=== PATIENT | female | born 1985 | race Caucasian/White ===

== ENCOUNTER 2020-07-19 15:51 | Emergency (ER) | payer SELFPAY ==
--- NOTE | 2020-07-19 16:19 | PC.NURSE ---
Pt here to be evaluated for a pencil to her left eye. Pt states she contacted per eye doctor and that they would get her in. Pt left without triage.
== END 2020-07-19 16:00 | disposition left against medical advice (07) ==
LOC: ANHED 18:42
DX: Z53.21 Procedure and treatment not carried out due to patient leaving prior to being seen by health care provider (principal)
CPT/HCPCS: 99199

== ENCOUNTER 2020-11-29 09:18 | Emergency (ER) | payer OTHER, SELFPAY ==
--- NOTE | ~2020-11-29 | CT_ITS ---
EXAMINATION: CT abdomen pelvis w con DATE: 11/29/2020 10:23 INDICATION: Left-sided abdominal pain. History of diverticulitis TECHNIQUE: Computed tomography (CT) of the abdomen and pelvis was performed with 100 cc Omnipaque 350 intravenous contrast. Automated exposure control and iterative reconstruction technique were employe d. Exam dose: 789.30 mGy-cm total exam DLP. COMPARISON: 08/23/2018 CT abdomen pelvis FINDINGS: The lung bases are clear. Normal heart size. No pericardial or pleural effusion. The liver, gallbladder, bile ducts, spleen, pancreas, pancreatic duct, and adrenal glands and kidneys are unremarkable with the exception of an 8 mm fat-containing lesion of the posterior mid left kidne y consistent with benign cortical lipoma or angiomyolipoma. In addition, there is a punctate nonobstr ucting lower pole left renal calculus. Peripherally enhancing involuting 2 cm right ovarian cyst. IUD within the uterus. The urinary bladder is unremarkable. There is diverticulosis of the left and right colon. There is thickening of the wall of the mid trans verse colon with pericolic fat stranding in this area consistent with transverse colon diverticulitis . No abscess is identified. Normal appendix. No bowel obstruction, pneumatosis or intraperitoneal free air. Small fat-containing umbilical hernia. Included skeletal structures are unremarkable. IMPRESSION: Diverticulitis of the mid transverse colon; no abscess is identified Normal appendix. IUD within uterus 2 cm involuting right ovarian cyst Pinpoint nonobstructing lower pole left renal calculus Reviewed, dictated and finalized at [facility] Reviewed, dictated and finalized at [facility] IMPRESSION: Diverticulitis of the mid transverse colon; no abscess is identifi ed Normal appendix. IUD within uterus 2 cm involuting right ovarian cyst Pinpoint nonobstructing lower pole left renal calculus
[2020-11-29 09:44] VITALS: BP 139/96; PULSE 93; RESP 15; TEMP 36.9; O2SAT 100
[2020-11-29 09:52] LABS: Basophils Absolute Auto 0.1 K/mm3 (0.0-0.1); Basophils Percent Auto 0.6 % (0.2-1.2); Eosinophils Absolute Auto 0.1 K/mm3 (0-0.3); Eosinophils Percent Auto 0.6 % (0-4.4); Hematocrit 38.9 % (37.0-47.0); Hemoglobin 12.6 g/dL (12.0-15.0); Immature Granulocyte Absolute 0.02 K/mm3 (0.00-0.031); Immature Granulocyte Percent A 0.2 % (0-0.5); Lymphocytes Absolute Auto 1.37 K/mm3 (0.9-3.2); Lymphocytes Percent Auto 15.5 % (18.3-44.2); Mean Corpuscular HGB Conc 32.4 g/dl (32-36); Mean Corpuscular Hemoglobin 29.4 pg (26-34); Mean Corpuscular Volume 90.9 fl (80-100); Mean Platelet Volume 8.7 fl (7.4-10.4); Monocytes Absolute Auto 0.8 K/mm3 (0.1-0.6); Monocytes Percent Auto 8.5 % (2.6-8.5); Neutrophils Absolute Auto 6.6 K/mm3 (1.3-6.7); Neutrophils Percent Auto 74.6 % (45.5-73.1); Platelet Count Result 330 k/mm3 (150-375); Red Blood Count 4.28 M/mm3 (4.2-5.4); Red Cell Distribution Width 12.3 % (11.5-14.5); White Blood Count 8.9 K/mm3 (4.5-10.0)
[2020-11-29 09:55] LABS: Add Urine Microscopic? NO; Appearance Urine Clear (Clear); Bilirubin Urine Negative (Negative); Blood Urine Negative (Negative); Color Urine Straw (Yellow); Glucose Urine UA Negative (Negative); Ketones Urine Negative (Negative); Leukocyte Esterase Ur Negative LEU/UL (Negative); Nitrate Urine Negative (Negative); Protein Urine Negative (Negative); Urobilinogen Urine Negative mg/dL (<2.0)
[2020-11-29 09:57] LABS: Specific Grav Ur 1.004 (1.001-1.035)
[2020-11-29 10:02] LABS: Alanine Aminotransferase 14 U/L (4-35); Albumin Level 4.7 g/dL (3.5-5.1); Alkaline Phosphatase 75 U/L (38-126); Anion Gap 13 mmol/L (8-16); Aspartate Amino Transferase 22 U/L (14-36); Bilirubin,Total 0.9 mg/dL (0.2-1.3); Blood Urea Nitrogen 7 mg/dL (7-17); Calcium 9.9 mg/dL (8.4-10.2); Carbon Dioxide 22 mmol/L (22-30); Chloride 105 mmol/L (98-107); Estimated CRCL calculation 107 ml/min; Estimated Glomerular Filt Rate > 60; Glucose 92 mg/dL (65-105); Lipase 30 U/L (23-300); Potassium 3.8 mmol/L (3.4-5.0); Sodium 140 mmol/L (137-145)
--- NOTE | 2020-11-29 10:02 | ED.ABDPAIN ---
HPI - Abdominal Pain General Chief Complaint: Abdominal Pain Stated Complaint: poss diverticulitis Time Seen by Provider: 11/29/20 09:23 Source: patient Mode of arrival: ambulatory Limitations: no limitations History of Present Illness HPI narrative: Patient is a 35-year-old female who presents complaining of left-sided abdominal pain x1 day. She reports a temperature of 100.2 last p.m. Patient reports a history of diverticulitis multiple times in the past, last episode approximately 18 months ago. Patient reports she sees Dr. Genao, gastroenterology at [facility]. She denies nausea, vomiting or diarrhea. She denies urinary complaints at this time. Patient denies taking [id number] medications for pain prior to arrival. Related Data Home Medications Medication Instructions Recorded Confirmed levothyroxine [Synthroid] 11/29/20 Allergies Allergy/AdvReac Type Severity Reaction Status Date / Time No Known Allergies Allergy Unverified 04/13/18 21:04 Review of Systems Review of Systems: Narrative: CONSTITUTIONAL: Denies fever, chills, or sweats. EYES: Denies visual changes, redness, or discharge. ENT: Denies rhinorrhea, congestion, sore throat, or otalgia. CARDIOVASCULAR: Denies chest pain, palpitations, or edema. RESPIRATORY: Denies cough or dyspnea. GASTROINTESTINAL: Reports left-sided abdominal pain, denies nausea, vomiting, or diarrhea. GENITOURINARY: Denies dysuria or hematuria. SKIN: Denies rash or itching. MUSCULOSKELETAL: Denies back pain, joint pain, or myalgia. NEUROLOGIC: Denies headache, numbness, dizziness, or weakness. PSYCHIATRIC: Denies anxiety or depression. [facility]LY [facility] Past Medical History Medical History (Updated 11/29/20 @ 10:44 by VERN Powell) Diverticulitis Hypothyroidism Surgical History Surgical History (Updated 11/29/20 @ 10:04 by VERN Powell) No significant past surgical history Social History Social History (Updated 11/29/20 @ 10:04 by VERN Powell) Smoking status: Never smoker Alcohol intake: never Substance use: never Gender identity (if verbalized by the patient): Female Comments At the time of signature, I have reviewed and agree with nursing past medical, surgical, social, and family history unless otherwise noted. Please see nursing chart for further information. There is no relevant family history pertinent to the presenting complaint. Exam Narrative: Exam Narrative: GENERAL: Well-appearing, well-nourished, and in no acute distress. HEAD: Normocephalic, atraumatic. EYES: EOMI. No redness or drainage. Conjunctiva are normal. ENT: Mucous membranes pink and moist. CHEST: No respiratory distress. Clear to auscultation. HEART: Regular rate and rhythm. No murmur appreciated. Normal peripheral pulses. GI: Soft, left-sided tenderness with palpation, no rebound or guarding. No distention. Bowel sounds normal in all quadrants. MUSCULOSKELETAL: No bony tenderness. EXTREMITIES: Normal range of motion. No edema. SKIN: Warm, dry, no rash. NEURO: No focal deficits. Alert and oriented x3. Gait steady. PSYCH: Normal affect. No signs of depression or anxiety. Course Vital Signs Vital signs: Vital Signs Temperature 36.9 C 11/29/20 09:44 Pulse Rate 93 11/29/20 09:44 Respiratory Rate 15 11/29/20 09:44 Blood Pressure 139/96 H 11/29/20 09:44 Pulse Oximetry 100 11/29/20 09:44 Temperature 36.9 C 11/29/20 09:44 Pulse Rate 70 11/29/20 10:13 Respiratory Rate 16 11/29/20 10:13 Blood Pressure 117/87 11/29/20 10:13 Pulse Oximetry 100 11/29/20 10:13 MDM - Abdominal Pain MDM Narrative Medical decision making narrative: Patient CT reports diverticulitis. Patient to be started on Cipro and Flagyl. Patient is aware of the need to follow-up with her projection printer. Patient agrees with plan of care. Patient is stable for discharge home with outpatient follow-up as discussed. Differential Diagnosis D
[2020-11-29 10:13] VITALS: BP 117/87; PULSE 70; RESP 16; O2SAT 100
[2020-11-29 10:58] VITALS: BP 118/75; PULSE 72; RESP 16; O2SAT 100
== END 2020-11-29 10:59 | disposition home or self-care (01) ==
PROVIDERS: Emergency Provider Nurse Practitioner
DX: K57.32 Diverticulitis of large intestine without perforation or abscess without bleeding (principal); E03.9 Hypothyroidism, unspecified; Z97.5 Presence of (intrauterine) contraceptive device; N83.201 Unspecified ovarian cyst, right side
CPT/HCPCS: 36415; 74177; 80053; 81003; 81025; 83690; 85025; 99284; Q9967

== ENCOUNTER 2021-11-06 08:11 | Emergency (ER) | payer OTHER, SELFPAY ==
[2021-11-06 09:00] VITALS: BP 119/81; PULSE 82; RESP 20; O2SAT 100
--- NOTE | 2021-11-06 09:06 | ED.ABDPAIN ---
HPI - Abdominal Pain General Chief Complaint: Abdominal Pain Stated Complaint: diverticulitis Time Seen by Provider: 11/06/21 08:56 History of Present Illness HPI narrative: Patient is a 36-year-old female here for evaluation of left lower quadrant abdominal pain for the past 3 days. Patient states the pain is intermittent and crampy in nature and remains in her left lower quadrant. Patient reports about 3-4 episodes of loose, nonbloody, stools per day. Patient has a history of recurrent diverticulitis, her symptoms today feel identical to previous. Patient states she has had over a dozen CT scans that all confirmed diverticulitis without complications. She follows with gastroenterology at [facility] and is supposed to have part of her colon resected due to recurrence. Denies fevers, chills, rashes, nausea, vomiting. Related Data Home Medications Medication Instructions Recorded Confirmed levothyroxine 100 mcg tablet 11/29/20 (Synthroid) Allergies Allergy/AdvReac Type Severity Reaction Status Date / Time No Known Allergies Allergy Unverified 04/13/18 21:04 Review of Systems Review of Systems: Gen: Denies fevers or chills Eyes: Denies eye pain or visual change ENT: Denies congestion Respiratory: Denies shortness of breath or cough CV: Denies chest pain or palpitations GI: Reports abdominal pain and diarrhea. Denies nausea, emesis denies burning, urgency, frequency or hematuria Musculoskeletal: Denies back pain or muscle pain Neuro: Denies numbness, tingling, weakness or focal weakness Skin: Denies rash Except as documented, all other systems reviewed and negative [facility] Past Medical History Medical History (Updated 11/06/21 @ 09:27 by Opal Jama PA-C) Diverticulitis Hypothyroidism Surgical History Surgical History (Updated 11/29/20 @ 10:04 by Cara Joshi, VERN) No significant past surgical history Social History Social History (Updated 11/29/20 @ 10:04 by Craa Joshi, NET LEAD DEVELOPER) Smoking status: Never smoker Alcohol intake: never Substance use: never Gender identity (if verbalized by the patient): Female Exam Narrative: APPEARANCE: Well appearing, no pain in distress, well-nourished. Head: normocephalic and atraumatic. EYES: PERRLA/EOMI, conjunctivae clear NOSE: No nasal drainage EARS: External ear normal in appearance THROAT: Oropharynx is clear. Mucous membranes are moist. NECK: Supple. No adenopathy, no masses. RESPIRATORY: Airway patent, respirations nonlabored. Clear to auscultation bilaterally, no rales, rhonchi, wheezing. CARDIOVASCULAR: Regular rate and rhythm without murmurs, rubs, or gallops. ABDOMINAL: Tender to palpation in left lower quadrant. Normoactive bowel sounds. Soft, nondistended. No rebound tenderness or guarding. MUSCULOSKELETAL: Extremities are warm and well-perfused. Moves all extremities well. No edema. NEURO: Normal speech. No focal neurologic deficits. SKIN: Skin is warm and dry. No rashes. PSYCHIATRIC: Normal affect/mood. Course Vital Signs Vital signs: Vital Signs Pulse Rate 82 11/06/21 09:00 Respiratory Rate 20 11/06/21 09:00 Blood Pressure 119/81 11/06/21 09:00 Pulse Oximetry 100 11/06/21 09:00 Oxygen Delivery Room Air 11/06/21 09:00 Temperature 36.4 C L 11/06/21 10:02 Pulse Rate 82 11/06/21 09:00 Respiratory Rate 16 11/06/21 10:02 Blood Pressure 119/81 11/06/21 09:00 Pulse Oximetry 100 11/06/21 09:00 Oxygen Delivery Room Air 11/06/21 09:00 MDM - Abdominal Pain MDM Narrative Medical decision making narrative: 36-year-old female with a history of frequent diverticulitis here for evaluation of left lower quadrant abdominal pain and diarrhea for the past 3 days. Patient's vital signs are normal, she is nontoxic-appearing, and she is tender in the left lower quadrant. Patient has a white count of 3.3, work-up otherwise within normal limits. Patient is hard stick, CMP
[2021-11-06 09:48] LABS: Basophils Absolute Auto 0.1 K/mm3 (0.0-0.1); Basophils Percent Auto 1.5 % (0.2-1.2); Eosinophils Absolute Auto 0.1 K/mm3 (0-0.3); Eosinophils Percent Auto 2.5 % (0-4.4); Hematocrit 38.9 % (37.0-47.0); Hemoglobin 12.4 g/dL (12.0-15.0); Lymphocytes Absolute Auto 0.95 K/mm3 (0.9-3.2); Lymphocytes Percent Auto 29.1 % (18.3-44.2); Mean Corpuscular HGB Conc 31.9 g/dl (32-36); Mean Corpuscular Hemoglobin 29.7 pg (26-34); Mean Corpuscular Volume 93.3 fl (80-100); Mean Platelet Volume 9.7 fl (7.4-10.4); Monocytes Absolute Auto 0.2 K/mm3 (0.1-0.6); Monocytes Percent Auto 7.1 % (2.6-8.5); Neutrophils Percent Auto 59.8 % (45.5-73.1); Platelet Count Result 282 k/mm3 (150-375); Red Blood Count 4.17 M/mm3 (4.2-5.4); Red Cell Distribution Width 12.4 % (11.5-14.5); White Blood Count 3.3 K/mm3 (4.5-10.0)
[2021-11-06 10:02] VITALS: RESP 16; TEMP 36.4
== END 2021-11-06 11:26 | disposition home or self-care (01) ==
PROVIDERS: Physician Assistant; Emergency Provider Emergency Medicine
DX: K57.92 Diverticulitis of intestine, part unspecified, without perforation or abscess without bleeding (principal); E03.9 Hypothyroidism, unspecified
CPT/HCPCS: 36415; 85025; 99283

== ENCOUNTER 2025-04-19 00:49 | Day surgery (SDC) | payer OTHER, SELFPAY ==
[2025-04-05 08:50] VITALS: BMI 32.3
--- OUTSIDE RECORDS SUMMARY | 2025-04-19 00:51 | XMS_ITS | Encounter Summary ---
Author Organization [facility] Address [address] [place] [address] Care Team Providers Care Twisthand Name Role Phone Dannie Grimaldo MD Primary Care Provider +1 [phone] Encounter Details Date Type Department Care Team (Late st Contact Info) Description 09/05/2006 Outpatient Historical [facility] Family Medicine [address] [place] [phone] Grace Moreira MD NO ADDRESS ON FILE Social History Tobacco Use Types Packs/Day Years Used Date Smoking Tobacco: Never Assessed Comments Unknown Sex and Gender Information Value Date Recorded Sex Assigned at Not on file Legal Sex Female 4:26 AM CAR PUSHER Gender Identity Not on file Sexual Orientation Not on file documented as of this encounter Plan of Treatment Upcoming Encounters Date Type Department Care Team (Late st Contact Info) Description 04/04/2026 9:30 AM CAR PUSHER Office Visit [facility] Endocrinology [address] [place] [address] Tommy Tucker MD [address] [place] [address] documented as of this encounter Visit Diagnoses Not on filedocumented in this encounter Care Teams Twisthand Relationship Specialty Start Date End Date Dannie Grimaldo MD PCP - General Family Practice 04/05/24 04/04/25 documented as of this encounter
--- OUTSIDE RECORDS SUMMARY | 2025-04-19 00:51 | XMS_ITS | Encounter Summary ---
Author Organization [facility] Address [address] [place] [address] Care Team Providers Care Flower Grader Name Role Phone Dannie Grimaldo MD Primary Care Provider [phone] [phone] Encounter Details Date Type Department Care Team (Latest Contact Info) Description 05/15/2005 Outpatient Historical [facility] Grace Kearns MD NO ADDRESS ON FILE JOINT PAIN-L/LEG (Primary Dx) Social History Tobacco Use Types Packs/Day Years Used Date Smoking Tobacco: Never Assessed Comments Unknown Sex and Gender Information Value Date Recorded Sex Assigned at Not on file Legal Sex Female 4:26 AM HVAC TECHNICIAN RESIDENTIAL Gender Identity Not on file Sexual Orientation Not on file documented as of this encounter Plan of Treatment Upcoming Encounters Date Type Department Care Team (Late st Contact Info) Description 04/04/2026 9:30 AM HVAC TECHNICIAN RESIDENTIAL Office Visit [facility] Endocrinology [address] [place] [address] Tommy Tucker MD [address] [place] [address] documented as of this encounter Visit Diagnoses Diagnosis Pain in joint, lower leg- Primary documented in this encounter Care Teams Flower Grader Relationship Specialty Start Date End Date Dannie Grimaldo MD PCP - General Family Practice 04/05/24 04/04/25 documented as of this encounter
--- OUTSIDE RECORDS SUMMARY | 2025-04-19 00:51 | XMS_ITS | Encounter Summary ---
Author Organization [facility] Address [address] [place] [address] Care Team Providers Care Package Wrapper Name Role Phone Dannie Grimaldo MD Primary Care Provider [phone] [phone] Encounter Details Date Type Department Care Team (Late st Contact Info) Description 12/13/2004 Outpatient Historical [facility] Family Medicine [address] [place] [id number] Colt Ambriz MD Social History Tobacco Use Types Packs/Day Years Used Date Smoking Tobacco: Never Assessed Comments Unknown Sex and Gender Information Value Date Recorded Sex Assigned at Not on file Legal Sex Female 4:26 AM GIS WEB DEVELOPER Gender Identity Not on file Sexual Orientation Not on file documented as of this encounter Plan of Treatment Upcoming Encounters Date Type Department Care Team (Late st Contact Info) Description 04/04/2026 9:30 AM GIS WEB DEVELOPER Office Visit [facility] Endocrinology [address] [place] [address] Tommy Tucker MD [address] [place] [address] documented as of this encounter Visit Diagnoses Not on filedocumented in this encounter Care Teams Package Wrapper Relationship Specialty Start Date End Date Dannie Grimaldo MD PCP - General Family Practice 04/05/24 04/04/25 documented as of this encounter
--- OUTSIDE RECORDS SUMMARY | 2025-04-19 00:51 | XMS_ITS | Encounter Summary ---
Author Organization [facility] Address [address] [place] [address] Care Team Providers Care Dynamic Balancer Set Up Worker Name Role Phone Dannie Grimaldo MD Primary Care Provider [phone] [phone] Encounter Details Date Type Department Care Team (Latest Contact Info) Description 05/16/2008 Outpatient Historical [facility], [address] Grace Moreira MD NO ADDRESS ON FILE Routine Gynecological Examination Social History Tobacco Use Types Packs/Day Years Used Date Smoking Tobacco: Never Comments No Sex and Gender Information Value Date Recorded Sex Assigned at Not on file Legal Sex Female 4:26 AM CHURCH SUPERVISOR Gender Identity Not on file Sexual Orientation Not on file documented as of this encounter Plan of Treatment Upcoming Encounters Date Type Department Care Team (Late st Contact Info) Description 04/04/2026 9:30 AM CHURCH SUPERVISOR Office Visit [facility] Endocrinology [address] [place] [address] Tommy Tucker MD [address] [place] [address] documented as of this encounter Visit Diagnoses Diagnosis Routine gynecological examination documented in this encounter Care Teams Dynamic Balancer Set Up Worker Relationship Specialty Start Date End Date Dannie Grimaldo MD PCP - General Family Practice 04/05/24 04/04/25 documented as of this encounter
--- OUTSIDE RECORDS SUMMARY | 2025-04-19 00:51 | XMS_ITS | Encounter Summary ---
Author Organization [facility] Address [address] [place] [address] Care Team Providers Care Journal Box Inspector Name Role Phone Dannie Grimaldo MD Primary Care Provider [phone] [phone] Encounter Details Date Type Department Care Team (Late st Contact Info) Description 05/10/2004 Outpatient Historical [facility] Family Medicine [address] [place] [phone] Ranjana Pearson MD [address] [facility] [place] [address] Social History Tobacco Use Types Packs/Day Years Used Date Smoking Tobacco: Never Assessed Comments Unknown Sex and Gender Information Value Date Recorded Sex Assigned at Not on file Legal Sex Female 4:26 AM TRAM INSPECTOR Gender Identity Not on file Sexual Orientation Not on file documented as of this encounter Plan of Treatment Upcoming Encounters Date Type Department Care Team (Late st Contact Info) Description 04/04/2026 9:30 AM TRAM INSPECTOR Office Visit [facility] Endocrinology [address] [place] [address] Tommy Tucker MD [address] [place] [address] documented as of this encounter Visit Diagnoses Not on filedocumented in this encounter Care Teams Journal Box Inspector Relationship Specialty Start Date End Date Dannie Grimaldo MD PCP - General Family Practice 04/05/24 04/04/25 documented as of this encounter
--- OUTSIDE RECORDS SUMMARY | 2025-04-19 00:51 | XMS_ITS | Encounter Summary ---
Author Organization [facility] Address [address] [place] [address] Care Team Providers Care Shotblast Equipment Operator Name Role Phone Dannie Grimaldo MD Primary Care Provider [phone] [phone] Encounter Details Date Type Department Care Team (Late st Contact Info) Description 05/30/2004 Outpatient Historical [facility] Family Medicine [address] [place] [phone] Grace Moreira MD NO ADDRESS ON FILE Social History Tobacco Use Types Packs/Day Years Used Date Smoking Tobacco: Never Assessed Comments Unknown Sex and Gender Information Value Date Recorded Sex Assigned at Not on file Legal Sex Female 4:26 AM COUNTER DISH CARRIER Gender Identity Not on file Sexual Orientation Not on file documented as of this encounter Plan of Treatment Upcoming Encounters Date Type Department Care Team (Late st Contact Info) Description 04/04/2026 9:30 AM COUNTER DISH CARRIER Office Visit [facility] Endocrinology [address] [place] [address] Tommy Tucker MD [address] [place] [address] documented as of this encounter Visit Diagnoses Not on filedocumented in this encounter Care Teams Shotblast Equipment Operator Relationship Specialty Start Date End Date Dannie Grimaldo MD PCP - General Family Practice 04/05/24 04/04/25 documented as of this encounter
--- OUTSIDE RECORDS SUMMARY | 2025-04-19 00:51 | XMS_ITS | Encounter Summary ---
Author Organization [facility] Address [address] [place] [address] Care Team Providers Care Rip/Mould Operator Name Role Phone Dannie Grimaldo MD Primary Care Provider [phone] [phone] Encounter Details Date Type Department Care Team (Late st Contact Info) Description 08/28/2004 Outpatient Historical [facility] Family Medicine [address] [place] [phone] Grace Moreira MD NO ADDRESS ON FILE Social History Tobacco Use Types Packs/Day Years Used Date Smoking Tobacco: Never Assessed Comments Unknown Sex and Gender Information Value Date Recorded Sex Assigned at Not on file Legal Sex Female 4:26 AM ELASTIC ATTACHER ZIGZAG Gender Identity Not on file Sexual Orientation Not on file documented as of this encounter Plan of Treatment Upcoming Encounters Date Type Department Care Team (Late st Contact Info) Description 04/04/2026 9:30 AM ELASTIC ATTACHER ZIGZAG Office Visit [facility] Endocrinology [address] [place] [address] Tommy Tucker MD [address] [place] [address] documented as of this encounter Visit Diagnoses Not on filedocumented in this encounter Care Teams Rip/Mould Operator Relationship Specialty Start Date End Date Dannie Grimaldo MD PCP - General Family Practice 04/05/24 04/04/25 documented as of this encounter
--- OUTSIDE RECORDS SUMMARY | 2025-04-19 00:51 | XMS_ITS | Encounter Summary ---
Author Organization [facility] Address [address] [place] [address] Care Team Providers Care Fleet Salesperson Name Role Phone Dannie Grimaldo MD Primary Care Provider [phone] [phone] Encounter Details Date Type Department Care Team (Late st Contact Info) Description 04/16/2006 Outpatient Historical [facility] Family Medicine [address] [place] [phone] Grace Moriera MD NO ADDRESS ON FILE Social History Tobacco Use Types Packs/Day Years Used Date Smoking Tobacco: Never Assessed Comments Unknown Sex and Gender Information Value Date Recorded Sex Assigned at Not on file Legal Sex Female 4:26 AM CRANE OILER Gender Identity Not on file Sexual Orientation Not on file documented as of this encounter Plan of Treatment Upcoming Encounters Date Type Department Care Team (Late st Contact Info) Description 04/04/2026 9:30 AM CRANE OILER Office Visit [facility] Endocrinology [address] [place] [address] Tommy Tucker MD [address] [place] [address] documented as of this encounter Visit Diagnoses Not on filedocumented in this encounter Care Teams Fleet Salesperson Relationship Specialty Start Date End Date Dannie Grimaldo MD PCP - General Family Practice 04/05/24 04/04/25 documented as of this encounter
--- OUTSIDE RECORDS SUMMARY | 2025-04-19 00:51 | XMS_ITS | Encounter Summary ---
Author Organization [facility] Address [address] [place] [address] Care Team Providers Care Utility Tech Name Role Phone Dannie Grimaldo MD Primary Care Provider [phone] [phone] Encounter Details Date Type Department Care Team (Latest Contact Info) Description 05/16/2008 Outpatient Historical [facility], [address] Grace Moreira MD NO ADDRESS ON FILE Routine Gynecological Examination Social History Tobacco Use Types Packs/Day Years Used Date Smoking Tobacco: Never Comments No Sex and Gender Information Value Date Recorded Sex Assigned at Not on file Legal Sex Female 4:26 AM MACHINE SHOP SUPERVISOR Gender Identity Not on file Sexual Orientation Not on file documented as of this encounter Plan of Treatment Upcoming Encounters Date Type Department Care Team (Late st Contact Info) Description 04/04/2026 9:30 AM MACHINE SHOP SUPERVISOR Office Visit [facility] Endocrinology [address] [place] [address] Tommy Tucker MD [address] [place] [address] documented as of this encounter Visit Diagnoses Diagnosis Routine gynecological examination documented in this encounter Care Teams Utility Tech Relationship Specialty Start Date End Date Dannie Grimaldo MD PCP - General Family Practice 04/05/24 04/04/25 documented as of this encounter
--- OUTSIDE RECORDS SUMMARY | 2025-04-19 00:51 | XMS_ITS | Encounter Summary ---
Author Organization [facility] Address [address] [place] [address] Care Team Providers Care Nursing Faculty Name Role Phone Dannie Grimaldo MD Primary Care Provider [phone] [phone] Encounter Details Date Type Department Care Team (Late st Contact Info) Description 12/13/2004 Outpatient Historical [facility] Family Medicine [address] [place] [id number] Colt Ambriz MD Social History Tobacco Use Types Packs/Day Years Used Date Smoking Tobacco: Never Assessed Comments Unknown Sex and Gender Information Value Date Recorded Sex Assigned at Not on file Legal Sex Female 4:26 AM FURNITURE DETAILER Gender Identity Not on file Sexual Orientation Not on file documented as of this encounter Plan of Treatment Upcoming Encounters Date Type Department Care Team (Late st Contact Info) Description 04/04/2026 9:30 AM FURNITURE DETAILER Office Visit [facility] Endocrinology [address] [place] [address] Tommy Tucker MD [address] [place] [address] documented as of this encounter Visit Diagnoses Not on filedocumented in this encounter Care Teams Nursing Faculty Relationship Specialty Start Date End Date Dannie Grimaldo MD PCP - General Family Practice 04/05/24 04/04/25 documented as of this encounter
--- OUTSIDE RECORDS SUMMARY | 2025-04-19 00:51 | XMS_ITS | Encounter Summary ---
Author Organization [facility] Address [address] [place] [address] Care Team Providers Care Metal Molder Name Role Phone Dannie Grimaldo MD Primary Care Provider +1 [phone] Encounter Details Date Type Department Care Team (Latest Contact Info) Description 04/16/2006 Outpatient Historical [facility] Family Medicine [address] [place] [address] Grace Moreira MD NO ADDRESS ON FILE Contact with or Exposure to Other Viral Diseases (Primary Dx) Social History Tobacco Use Types Packs/Day Years Used Date Smoking Tobacco: Never Assessed Comments Unknown Sex and Gender Information Value Date Recorded Sex Assigned at Not on file Legal Sex Female 4:26 AM MERCHANDISE HANDLER Gender Identity Not on file Sexual Orientation Not on file documented as of this encounter Plan of Treatment Upcoming Encounters Date Type Department Care Team (Late st Contact Info) Description 04/04/2026 9:30 AM MERCHANDISE HANDLER Office Visit [facility] Endocrinology [address] [place] [address] Tommy Tucker MD [address] [place] [address] documented as of this encounter Visit Diagnoses Diagnosis Contact with or exposure to other viral diseases(V01.79)- Primary Contact with or exposure to other viral diseases documented in this encounter Care Teams Metal Molder Relationship Specialty Start Date End Date Dannie Grimaldo MD PCP - General Family Practice 04/05/24 04/04/25 documented as of this encounter
--- OUTSIDE RECORDS SUMMARY | 2025-04-19 00:51 | XMS_ITS | Encounter Summary ---
Author Organization [facility] Address [address] [place] [address] Care Team Providers Care Printer Slotter Helper Name Role Phone Dannie Grimaldo MD Primary Care Provider +1 [phone] Encounter Details Date Type Department Care Team (Late st Contact Info) Description 05/13/2005 Outpatient Historical [facility] Family Medicine [address] [place] [address] Grace Moreira MD NO ADDRESS ON FILE Social History Tobacco Use Types Packs/Day Years Used Date Smoking Tobacco: Never Assessed Comments Unknown Sex and Gender Information Value Date Recorded Sex Assigned at Not on file Legal Sex Female 4:26 AM GREEN PRIZE PACKER Gender Identity Not on file Sexual Orientation Not on file documented as of this encounter Plan of Treatment Upcoming Encounters Date Type Department Care Team (Late st Contact Info) Description 04/04/2026 9:30 AM GREEN PRIZE PACKER Office Visit [facility] Endocrinology [address] [place] [address] Tommy Tucker MD [address] [place] [address] documented as of this encounter Visit Diagnoses Not on filedocumented in this encounter Care Teams Printer Slotter Helper Relationship Specialty Start Date End Date Dannie Grimaldo MD PCP - General Family Practice 04/05/24 04/04/25 documented as of this encounter
--- OUTSIDE RECORDS SUMMARY | 2025-04-19 00:51 | XMS_ITS | Encounter Summary ---
Author Organization [facility] Address [address] [place] [address] Care Team Providers Care Casing Splitter Name Role Phone Dannie Grimaldo MD Primary Care Provider +1 [phone] Encounter Details Date Type Department Care Team (Late st Contact Info) Description 05/13/2007 Outpatient Historical [facility] Family Medicine [address] [place] [phone] Grace Moreira MD NO ADDRESS ON FILE Social History Tobacco Use Types Packs/Day Years Used Date Smoking Tobacco: Never Assessed Comments Unknown Sex and Gender Information Value Date Recorded Sex Assigned at Not on file Legal Sex Female 4:26 AM SEMI DRIVER Gender Identity Not on file Sexual Orientation Not on file documented as of this encounter Plan of Treatment Upcoming Encounters Date Type Department Care Team (Late st Contact Info) Description 04/04/2026 9:30 AM SEMI DRIVER Office Visit [facility] Endocrinology [address] [place] [address] Tommy Tucker MD [address] [place] [address] documented as of this encounter Visit Diagnoses Not on filedocumented in this encounter Care Teams Casing Splitter Relationship Specialty Start Date End Date Dannie Grimaldo MD PCP - General Family Practice 04/05/24 04/04/25 documented as of this encounter
--- OUTSIDE RECORDS SUMMARY | 2025-04-19 00:52 | XMS_ITS | Clinical Summary ---
Author Organization [facility] Address [address] [place] [address] Care Team Providers Care Cracker Off Name Role Phone Unavailable Primary Care Provider Unavailabl e Allergies Active Allergy Reactions Criticality Noted Date Comments Iodinated Contrast Media Other (See Comments) 04/05/2025 Saw spots, couldn't breathe, had hives Medications levonorgestreL (MIRENA) 20 mcg/24 hours (7 yrs) 52 mg IUD 1 Device by Intrauterine route. Active Synthroid 100 mcg tabletIndications: Primary hypothyroidism Take 1 tablet (100 mcg) by mouth Friday-Fri and 1/2 tablet on Sundays, dose change 01/31/25 90 Tablet 2 02/01/20 Active FLUoxetine (PROzac) 10 mg capsule Take 10 mg by mouth daily. 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 Overview (06/26/2011): ASCUS pap Resolved Problems Problem Noted Date Diagnosed Date Resolved Date Unspecified hypothyroidism 07/20/2013 0 07/18/2015 Abdominal pain in , antepartum 07/07/2012 05/14/2018 Diverticulitis 02/18/2012 04/05/2024 Encounters Date Type Department Care Team Description 04/06/2025 Results Follow-Up [facility] Endocrinology [address] [place] [address] Tommy Tucker MD T4 FREE, TSH 04/06/2025 Results Follow-Up [facility] Endocrinology [address] [place] [address] Tommy Tucker MD COMPREHENSIVE METABOLIC PANEL, TSH, HEMOGLOBIN A1C, VITAMIN D 25 HYDROXY 04/05/2025 9:15 AM GLAZING DEPARTMENT SUPERVISOR Office Visit [facility] Endocrinology [address] [place] [address] Tommy Tucker MD Primary hypothyroidism (Primary Dx); Vitamin D deficiency; Hypercholesterolemia; BMI 34.0-34.9,adult; Elevated ALT measurement; Screening for diabetes mellitus 03/15/2025 External Device Data STL ABSTRACTION Provider, Abstract from Last 3 Months Immunizations Immunization Administration Dates Next Due (ADACEL/BOOSTRIX)(10 YR UP) TDAP VACCINE, 0.5ML, IM 01/10/2018,05/17/2008 (LARISSA) COVID-19 VACCINE - EMERGENCY USE AUTHORIZATION, AD26,COV2S(PF) 0.5 ML IM SUSP 07/31/2020 INFLUENZA VACCINE QUADRIVALE NT 6 MOS UP PF IM 05/07/2022,03/13/2021,03/17/2020 Influenza Vaccine Split 3+ Yrs IM 02/22/2013 Family History Medical History Relation Name Comments Osteoporosis Maternal Grandfather Rhys Young High Cholesterol Maternal Grandmother RIAZ YOUNG Osteoporosis Maternal Grandmother RIAZ YOUNG Cancer Mother Fidelia Velazquez Thyroid Thyroid Disease Mother Fidelia Velazquez cancer Colon Cancer Other paternal aunt Diabetes Other mat uncle Relation Name Status Comments Brother Alive Father Alive Maternal Grandfather Rhys Young Maternal Grandmother RIAZ YOUNG Mother Fidelia Velazquez Alive Other Social History Tobacco Use Types Packs/Day Years Used Date Smoking Tobacco: Never Smokeless Tobacco: Never Tobacco Cessation:Counseling Given: Yes Alcohol Use Standard Drinks/Week Comments Yes 2 (1 standard drink = 0.6 oz pur e alcohol) occ Comments No Sex and Gender Information Value Date Recorded Sex Assigned at Not on file Legal Sex Female 4:26 AM GLAZING DEPARTMENT SUPERVISOR Gender Identity Not on file Sexual Orientation Not on file 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 Not on file Last Filed Vital Signs Vital Sign Reading Time Taken Comments Blood Pressure 120/84 04/05/2025 9:25 AM GLAZING DEPARTMENT SUPERVISOR Pulse 85 04/05/2025 9:25 AM GLAZING DEPARTMENT SUPERVISOR Temperature 36.4 C (97.5 F) 05/07/2022 9:23 AM GLAZING DEPARTMENT SUPERVISOR Respiratory Rate 18 12/24/2019 12:11 PM CDT Oxygen Saturation 98% 04/05/2025 9:25 AM GLAZING DEPARTMENT SUPERVISOR Inhaled Oxygen Concentration - - Weight 95.3 kg (210 lb) 04/05/2025 9:25 AM GLAZING DEPARTMENT SUPERVISOR Height 167.6 cm (5' 6) 04/05/2025 9:25 AM GLAZING DEPARTMENT SUPERVISOR Body Mass Index 33.89 04/05/2025 9:25 AM GLAZING DEPARTMENT SUPERVISOR Plan of Treatment Upcoming Encounters Date Type Department Care Team (Late st Contact Info) Description 04/04/2026 9:30 AM GLAZING DEPARTMENT SUPERVISOR Office Visit [facility] Endocrinology [address] [place] [address] Tommy Tucker MD [address] [place] [address] Health Maintenance Due Date Last Done Comments HEPATITIS B VACCINES (1 of 3 - 19+ 3-dose series) 2005 HPV VACCINES (1 - 3-dose SCD M series) 2013 PAP SMEAR 02/05/2016 06/26/2011, 08/2009, 05/16/2008 CERVICAL CANCER SCREENING 06/26/2016 HPV/Cotest (21-29) 06/26/2016 06/26/2011, 0 05/29/2009, 05/16/2008, Additional history exists HPV/Cotest (30-65) 06/26/2016 06/26/2011, 0 05/29/2009, 05/16/2008, Additional history exists INFLUENZA VACCINE (#1) 2024 2, 03/13/2021, 03/17/2020, Additional history exists COVID-19 Vaccine (2 - 2024-2 6 season) 2025 07/31/2020 DTAP/TDAP/TD VACCINES (3 - T d or Tdap) 01/11/2028 01/10/2018, 05/17/2008 Pre-Diabetes and Diabetes Screening 04/05/2028 04/05/2025, 04/05/2024 Procedures Procedure Name Priority Date/Time Associated Diagnosis Comments VITAMIN D 25 HYDROXY Routine 04/05/2025 10:07 AM GLAZING DEPARTMENT SUPERVISOR Vitamin D deficiency HEMOGLOBIN A1C Routine 04/05/2025 10:07 AM GLAZING DEPARTMENT SUPERVISOR Screening for diabetes mellitus TSH Routine 04/05/2025 10:07 AM GLAZING DEPARTMENT SUPERVISOR Primary hypothyroidism COMPREHENSIVE METABOLIC PANEL Routine 04/05/2025 10:07 AM GLAZING DEPARTMENT SUPERVISOR Elevated ALT measurement TSH Routine 04/05/2025 10:06 AM GLAZING DEPARTMENT SUPERVISOR Primary hypothyroidism T4 FREE Routine 04/05/2025 10:06 AM GLAZING DEPARTMENT SUPERVISOR Primary hypothyroidism CERV/VAG CYTOPATH, THIN PREP BABBITT SPINNER AND HPV Routine 06/26/2011 3:15 PM GLAZING DEPARTMENT SUPERVISOR Routine gynecological examination Screening for malignant neoplasm of the cervix from Last 3 Months or Most Recently Relevant to Health Maintenance Results * (ABNORMAL) VITAMIN D 25 HYDROXY (04/05/2025 10:07 AM GLAZING DEPARTMENT SUPERVISOR) VITAMIN D, 25 OH, TOTAL 27(L) 30 - 100 ng/mL [facility] Comment: Vitamin D Status 25-OH Vitamin D: Deficiency: <20 ng/mL Insufficiency: 20 - 29 ng/mL Optimal: > or = 30 ng/mL For 25-OH Vitamin D testing on patients on D2-supplementation and patients for whom quantitation of D2 and D3 fractions is required, the QuestAssureD(TM) 25-OH VIT D, (D2,D3), LC/MS/MS is recommended: order code 15487 (patients >2yrs). See Note 1 Note 1 For additional information, please refer to http://education.[employer]/faq/VFI329 (This link is being provided for informational/ educational purposes only.) Test Performed at: [facility] [address] Hawa Loya MD Blood 04/05/2025 10:0 7 AM GLAZING DEPARTMENT SUPERVISOR 04/05/2025 10:08 AM GLAZING DEPARTMENT SUPERVISOR Tommy Tucker MD CHEMISTRY ORDERABLES Final Result Performing Organization Address City/[facility]/ZIP Co de Phone Number [facility] [phone] [facility] [address] * TSH (04/05/2025 10:07 AM GLAZING DEPARTMENT SUPERVISOR) Only the most recent of2 resultswithin the time period is included. TSH 1.04 mIU/L [facility] Comment: Reference Range > or = 20 Years 0.40-4.50 Ranges First trimester 0.26-2.66 Second trimester 0.55-2.73 Third trimester 0.43-2.91 Test Performed at: [facility] [address] [place] [phone] Hawa Loya MD Blood 04/05/2025 10:0 7 AM GLAZING DEPARTMENT SUPERVISOR 04/05/2025 10:08 AM GLAZING DEPARTMENT SUPERVISOR Tommy Tucker MD CHEMISTRY ORDERABLES Final Result Performing Organization Address City/[facility] Co de Phone Number [facility] [phone] [facility] [address] * HEMOGLOBIN A1C (04/05/2025 10:07 AM GLAZING DEPARTMENT SUPERVISOR) HEMOGLOBIN A1C 5.3 <5.7 % of total Hgb [facility] Comment: For the purpose of screening for the presence of diabetes: <5.7% Consistent with the absence of diabetes 5.7-6.4% Consistent with increased risk for diabetes (prediabetes) > or =6.5% Consistent with diabetes This assay result is consistent with a decreased risk of diabetes. Currently, no consensus exists regarding use of hemoglobin A1c for diagnosis of diabetes in children. According to [place] [employer] (ADA) guidelines, hemoglobin A1c <7.0% represents optimal control in non- diabetic patients. Different metrics may apply to specific patient populations. Standards of Medical Care in Diabetes(ADA). ESTIMATED AVERAGE GLUCOSE (MG/DL) 105 mg/dL [facility] ESTIMATED AVERAGE GLUCOSE (MMOL/L) 5.8 mmol/L [facility] Comment: Test Performed at: [facility] [address] [place] [address] KarisKenishaSharron Stella Loya Blood 04/05/2025 10:0 7 AM GLAZING DEPARTMENT SUPERVISOR 04/05/2025 10:08 AM GLAZING DEPARTMENT SUPERVISOR us Tommy Tucker MD CHEMISTRY ORDERABLES Final Result [facility] [phone] [facility] [address] [place] [address] * COMPREHENSIVE METABOLIC PANEL (04/05/2025 10:07 AM GLAZING DEPARTMENT SUPERVISOR) GLUCOSE 81 65 - 99 mg/dL [facility] Comment: Fasting reference interval BUN 12 7 - 25 mg/dL [facility] CREATININE 0.66 0.50 - 0.97 mg/dL [facility] GFR 114 > OR = 60 mL/min/1. 73m2 [facility] BUN/CREAT RATIO SEE NOTE: 6 - 22 (calc) [facility] Comment: Not Reported: BUN and Creatinine are within reference range. SODIUM 137 135 - 146 mmol/L [facility] POTASSIUM 4.1 3.5 - 5.3 mmol/L [facility] CHLORIDE 102 98 - 110 mmol/L [facility] CO2 30 20 - 32 mmol/L [facility] CALCIUM 9.8 8.6 - 10.2 mg/dL [facility] TOTAL PROTEIN 7.1 6.1 - 8.1 g/dL [facility] ALBUMIN 4.5 3.6 - 5.1 g/dL [facility] GLOBULIN 2.6 1.9 - 3.7 g/dL (calc) [facility] ALBUMIN/GLOBULIN RATIO 1.7 1.0 - 2.5 (calc) [facility] BILIRUBIN TOTAL 0.6 0.2 - 1.2 mg/dL [facility] ALKALINE PHOSPHATASE 63 31 - 125 U/L [facility] AST 17 10 - 30 U/L [facility] ALT 22 6 - 29 U/L [facility] Comment: Test Performed at: [facility] [address] [place] [address] Hawa Loya MD Blood 04/05/2025 10:0 7 AM GLAZING DEPARTMENT SUPERVISOR 04/05/2025 10:08 AM GLAZING DEPARTMENT SUPERVISOR Tommy Tucker MD CHEMISTRY ORDERABLES Final Result Performing Organization Address City/[facility]/ZIP Co de Phone Number [facility] [phone] [facility] [address] * T4 FREE (04/05/2025 10:06 AM GLAZING DEPARTMENT SUPERVISOR) Pathologist [facility] T4 FREE 1.5 0.8 - 1.8 ng/dL [facility] Comment: Test Performed at: [facility] [address] Hawa Loya MD Blood 04/05/2025 10:0 6 AM GLAZING DEPARTMENT SUPERVISOR 04/05/2025 10:08 AM GLAZING DEPARTMENT SUPERVISOR Tommy Tucker MD CHEMISTRY ORDERABLES Final Result [facility] [phone] [facility] [address] * (ABNORMAL) CERV/VAG CYTOPATH, THIN PREP BABBITT SPINNER AND HPV (06/26/2011 3:15 PM GLAZING DEPARTMENT SUPERVISOR) Pathologist [facility] CLINICAL INFORMATION Oral contraceptives [facility] PREV PAP: ASCUS [facility] LAST MENSTRUAL PERIOD 06/16/11 [facility] SOURCE Cervix, Endocervix [facility] PREV BX: NO [facility] HPV HIGH RISK DNA DETECTION DETECTED(A) [facility] Comment: Reference range: Not Detected High-risk HPV types 16,18,31,33,35,39,45,51,52,56, 58,59, or 68 may cause cervical cancer or its precursors. The analytical performance characteristics of this assay, when used to test Sure[facility] or vaginal specimens, have been determined by [facility]. Methodology: Hybrid Capture with Signal Amplification. Lab test performed by: [facility] [address] [place] [address] SOWMYA HIRSCH DO PAP INTERP Low Grade Squamous Intraepithelial Lesion (LSIL)(A) [facility] Air Cargo Agent Pap Comment This Pap test has been evaluated with computer assisted technology. Suggest clinical correlation and follow-up as clinically appropriate [facility] ADEQUACY: Satisfactory for evaluation. Endocervical/lobo sformation zone component present. [facility] GENERAL CATEGORIZATION: EPITHELIAL CELL ABNORMALITY(A) [facility] PATHOLOGIST Vaughn Keith M.D., Board Certified in Anatomic Pathology and Cytopathology. (electronic signature) [facility] Comment: Lab test performed by: [facility] [address] [place] [place] [address] SOWMYA HIRSCH DO COOK NIGHT: CHELITA PEDERSON(ASCP) [facility] Endocervical 06/26/2011 3:15 PM GLAZING DEPARTMENT SUPERVISOR 06/26/2011 8:46 PM GLAZING DEPARTMENT SUPERVISOR Comment:ENDOCERVICAL Helen MOROCHO PATHOLOGY/CYTOLOGY ORDERAB LES Edited [facility] CLIA# [id number] [address] [place] [id number] from Last 3 Months or Most Recently Relevant to Health Maintenance Insurance [facility] [id number] Advance Directives For more information, please contact: [phone] * Full Code (Latest Code Status on File) Date Activated Date Inactivated Comments 05/27/2018 6:41 AM 05/27/2018 10:47 AM * Full Code Date Activated Date Inactivated Comments 04/23/2017 8:09 AM 04/23/2017 11:33 AM * Full Code Date Activated Date Inactivated Comments 07/07/2012 1:00 PM 07/07/2012 4:42 PM
--- OUTSIDE RECORDS SUMMARY | 2025-04-19 00:52 | XMS_ITS | Encounter Summary ---
Author Organization [facility] Address [address] [place] [address] Care Team Providers Care Sliver Cutter Name Role Phone Unavailable Primary Care Provider Unavailabl e Encounter Details Date Type Department Care Team (Late st Contact Info) Description 04/06/2025 Results Follow-Up [facility] Endocrinology [address] [place] [address] Tommy Tucker MD [address] [place] [address] T4 FREE, TSH Social History Tobacco Use Types Packs/Day Years Used Date Smoking Tobacco: Never Smokeless Tobacco: Never Alcohol Use Standard Drinks/Week Comments Yes 2 (1 standard drink = 0.6 oz pur e alcohol) occ Comments No Sex and Gender Information Value Date Recorded Sex Assigned at Not on file Legal Sex Female 4:26 AM EYEGLASS LENS GRINDER Gender Identity Not on file Sexual Orientation Not on file 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
--- OUTSIDE RECORDS SUMMARY | 2025-04-19 00:52 | XMS_ITS | Encounter Summary ---
Author Organization [facility] Address [address] [place] [address] Care Team Providers Care Personal Chef Name Role Phone Dannie Grimaldo MD Primary Care Provider [phone] Encounter Details Date Type Department Care Team (Late st Contact Info) Description 05/13/2007 Outpatient Historical [facility] Family Medicine [address] [place] [address] Grace Moreira MD NO ADDRESS ON FILE Social History Tobacco Use Types Packs/Day Years Used Date Smoking Tobacco: Never Assessed Comments Unknown Sex and Gender Information Value Date Recorded Sex Assigned at Not on file Legal Sex Female 4:26 AM COUNTER INTELLIGENCE TECHNICIAN Gender Identity Not on file Sexual Orientation Not on file documented as of this encounter Plan of Treatment Upcoming Encounters Date Type Department Care Team (Late st Contact Info) Description 04/04/2026 9:30 AM COUNTER INTELLIGENCE TECHNICIAN Office Visit [facility] Endocrinology [address] [place] [address] Tommy Tucker MD [address] [place] [address] documented as of this encounter Visit Diagnoses Not on filedocumented in this encounter Care Teams Personal Chef Relationship Specialty Start Date End Date Dannie Grimaldo MD PCP - General Family Practice 04/05/24 04/04/25 documented as of this encounter
--- OUTSIDE RECORDS SUMMARY | 2025-04-19 00:52 | XMS_ITS | Encounter Summary ---
Author Organization [facility] Address [address] [place] [address] Care Team Providers Care Fan Installer Name Role Phone Dannie Grimaldo MD Primary Care Provider [phone] Encounter Details Date Type Department Care Team (Latest Contact Info) Description 05/13/2007 Outpatient Historical [facility] Family Medicine [address] [place] [address] Grace Moreira MD NO ADDRESS ON FILE Contact with or Exposure to Other Viral Diseases Social History Tobacco Use Types Packs/Day Years Used Date Smoking Tobacco: Never Assessed Comments Unknown Sex and Gender Information Value Date Recorded Sex Assigned at Not on file Legal Sex Female 4:26 AM SUGAR MIXER Gender Identity Not on file Sexual Orientation Not on file documented as of this encounter Plan of Treatment Upcoming Encounters Date Type Department Care Team (Late st Contact Info) Description 04/04/2026 9:30 AM SUGAR MIXER Office Visit [facility] Endocrinology [address] [place] [address] Tommy Tucker MD [address] [place] [address] documented as of this encounter Procedures Procedure Name Priority Date/Time Associated Diagnosis Comments LIPID PANEL Routine 05/13/2007 11:45 AM SUGAR MIXER documented in this encounter Results * (ABNORMAL) LIPID PANEL (05/13/2007 11:45 AM SUGAR MIXER) CHOLESTEROL 196 100 - 199 mg/dL INTERFACE SYSTEM TRIGLYCERIDE 153(H) 10 - 149 mg/dL INTERFACE SYSTEM HDL 50 40 - 59 mg/dL INTERFACE SYSTEM CHOL/HDL RATIO 3.9 2.0 - 5.0 INTER FACE SYSTEM LDL CALCULATED 115(H) <=99 mg/dL INTERFACE SYSTEM LIPID PANEL COMMENT See Below INTERFACE SYSTEM Comment: The adult ATP and pediatric NCEP classifications for lipids are available on the [facility] Intranet at: [email or web address] Select: Lab Policies and Procedures,Current Select: Lipid Panel Interpretation 05/13/2007 11:4 5 AM SUGAR MIXER us Grace Moreira MD CHEMISTRY ORDERABLES Edited INTERFACE SYSTEM Refer to clinic/hospital department documented in this encounter Visit Diagnoses Diagnosis Contact with or exposure to other viral diseases(V01.79) Contact with or exposure to other viral diseases documented in this encounter Care Teams Fan Installer Relationship Specialty Start Date End Date Dannie Grimaldo MD PCP - General Family Practice 04/05/24 04/04/25 documented as of this encounter
--- OUTSIDE RECORDS SUMMARY | 2025-04-19 00:52 | XMS_ITS | Clinical Summary ---
Author Organization [facility] Address [address] [place] [address] Care Team Providers Care Cook Larder Name Role Phone Unknown, Notinfile Primary Care Provider Unavail able Allergies No known active allergies Medications levothyroxine (SYNTHROID) 100 mcg tablet Take 1 tablet (100 mcg total) by mouth 4 Active levonorgestreL (MIRENA) IUD 1 each by intrauterine route 9 Active Active Problems Problem Noted Date Diagnosed Date Research study patient 06/28/2022 Mixed hyperlipidemia 03/13/2021 Primary hypothyroidism 07/24/2015 Diverticulitis 02/18/2012 Obesity (BMI 30-39.9) 06/26/2011 High risk HPV infection 05/23/2008 Overview (04/10/2022): ASCUS pap Medical History Medical History Date Comments Thyroid disease Social History Tobacco Use Types Packs/Day Years Used Date Smoking Tobacco: Never Smokeless Tobacco: Never Tobacco Cessation:Counseling Given: Not Answered Comments Unknown Sex and Gender Information Value Date Recorded Sex Assigned at Not on file Legal Sex Female 12:13 AM FINANCIAL COACH Gender Identity Not on file Sexual Orientation Not on file Last Filed Vital Signs Vital Sign Reading Time Taken Comments Blood Pressure 116/82 05/15/2023 9:40 AM FINANCIAL COACH Pulse 84 05/15/2023 9:40 AM FINANCIAL COACH Temperature 36.9 C (98.5 F) 05/15/2023 9:40 AM FINANCIAL COACH Respiratory Rate 16 05/15/2023 9:40 AM FINANCIAL COACH Oxygen Saturation 100% 11/30/2022 6:09 PM CDT Inhaled Oxygen Concentration - - Weight 102.9 kg (226 lb 12.8 oz) 05/15/2023 9:40 AM FINANCIAL COACH Height 167.6 cm (5' 6) 11/30/2022 6:09 PM CDT Body Mass Index 36.61 11/30/2022 6:09 PM CDT Plan of Treatment Health Maintenance Due Date Last Done Comments Cervical Cancer Screening 1986 Depression Screening 1986 Hepatitis C Screening 1986 Varicella Vaccines (1 of 2 - 13+ 2-dose series) 1999 Hepatitis B Screening 02/05/2004 Regular Well Visit/Exam 18-64 02/05/2004 HPV Vaccines (1 - 3-dose SCDM series) 2013 Covid-19 Vaccine (3 - season) 2025 05/28/2021, 07/31/2020 Influenza Vaccine (#1) 2025 , 03/13/2021, 03/17/2020, Additional history exists DTaP/Tdap/Td Vaccine (3 - Td or Tdap) 01/10/2028 01/09/2018, 05/17/2008 Pneumococcal vaccine <65 Aged Out No longer eligible based on patient's age to complete this topic [place] [address] [facility] PLUS [facility] PL[facility] PL[facility] Care Teams Cook Larder Relationship Specialty Start Date End Date Unknown, Notinfile PCP - General 04/10/22
--- OUTSIDE RECORDS SUMMARY | 2025-04-19 00:52 | XMS_ITS | Encounter Summary ---
Author Organization [facility] Address [address] [place] [address] Care Team Providers Care Storage Consultant Name Role Phone Unavailable Primary Care Provider Unavailabl e Encounter Details Date Type Department Care Team (Latest Contact Info) Description 04/06/2025 Results Follow-Up [facility] Endocrinology [address] [place] [address] Tommy Tucker MD [address] [place] [address] COMPREHENSIVE METABOLIC PANEL, TSH, HEMOGLOBIN A1C, VITAMIN D 25 HYDROXY Social History Tobacco Use Types Packs/Day Years Used Date Smoking Tobacco: Never Smokeless Tobacco: Never Alcohol Use Standard Drinks/Week Comments Yes 2 (1 standard drink = 0.6 oz pur e alcohol) occ Comments No Sex and Gender Information Value Date Recorded Sex Assigned at Not on file Legal Sex Female 4:26 AM AGENT Gender Identity Not on file Sexual Orientation Not on file 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
[2025-04-19 12:51] VITALS: BP 130/87; PULSE 93; RESP 18; TEMP 36.1; O2SAT 100; BMI 32.3
[2025-04-19 12:55] LABS: BEDSIDEPREGUCG Negative (Negative)
[2025-04-19] MEDS: LACTATED RINGERS 1,000 ML 150 ML IV CONT (13:04)
--- NOTE | 2025-04-19 13:09 | WPDANESEPPF ---
Anes - Initial Pre Proc Eval Procedure: Operation Date: 04/19/25 14:00 Proposed Procedures p Screening Colonoscopy - Kwasi Wasserman MD Date/Time: 04/19/25 13:09 Surgeon: Kwasi Wasserman MD Pre Op Diagnosis: screening hx of diverticulosis Patient Data Age: 40 Gender: F Height: 1.68 m Weight: 91 kg Last Vital Signs Temp 97 F L 04/19/25 12:51 Pulse 93 04/19/25 12:51 Resp 18 04/19/25 12:51 BP 130/87 04/19/25 12:51 Pulse Ox 100 04/19/25 12:51 O2 Del Method Room Air 04/19/25 12:51 Allergies Allergy/AdvReac Type Severity Reaction Status Date / Time gadobenic acid (From Allergy Severe Anaphylaxis Verified 04/19/25 12:50 contrast - MRI) iohexol (From contrast - CT, Allergy Severe Anaphylaxis Verified 04/19/25 12:50 X-RAY) Home Medications ?Medication ?Instructions ?Recorded ?Confirmed ?Type levothyroxine 100 mcg tablet 100 mcg PO DAILY 11/29/20 04/19/25 History (Synthroid) fluoxetine 10 mg capsule 10 mg PO DAILY 04/05/25 04/19/25 History Laboratory Tests 04/19/25 12:53 POC Urine HCG, Qual Negative (Negative) Patient hx anesthesia problems: none Family hx anesthesia problems: none Results Review: All pre-operative results and documents have been reviewed as part of the pre-operative evaluation. [facility] Past Medical History Medical History Hypothyroidism Diverticulitis Surgical History Surgical History No significant past surgical history Social History Social History Smoking status: Never smoker Alcohol intake: current Substance use: never Substance use type: does not use Living arrangements: with family Gender identity (if verbalized by the patient): Female Spiritual care concerns: No Anes - Eval Final PreProcedure Day of Procedure 04/19/25 13:09 Patient weight: obese Lungs: normal air movement Airway: Mallampati scale class II Neurological: alert and oriented Last oral intake: >/= 8 hours ASA classification: II Emergent: no Anesthetic plan: proceed Anesthesia type and monitoring: general GIVS and standard monitoring Results Review: All pre-operative results and documents have been reviewed as part of the pre-operative evaluation. Hypothyroidism, active w [place], no cp or sob. BMI 32. Informed Consent: The patient's anesthetic plan and its attendant risks and benefits were discussed with the patient/family/POA. Questions were solicited and answers provided to the satisfaction of the patient/family/POA.
--- NOTE | 2025-04-19 13:32 | PM.HPGS ---
History of Present Illness History of Present Illness Consent: Risks, benefits, and alternatives have been discussed and questions answered. Patient agrees to proceed with procedure. Chief complaint: screening hx of diverticulosis Narrative: Rose Marie Patton is a 40 year old female with h/o diverticulitis, last colonoscopy 2019 Review of Systems Review of Systems: All systems reviewed & are unremarkable except as noted in HPI and below PMFSH Past Medical History Medical History (Updated 04/19/25 @ 13:35 by Kwasi Wasserman MD) History of diverticulitis of colon Hypothyroidism Diverticulitis Surgical History Surgical History No significant past surgical history Social History Social History Smoking status: Never smoker Alcohol intake: current Substance use: never Substance use type: does not use Living arrangements: with family Gender identity (if verbalized by the patient): Female Spiritual care concerns: No Meds Home Medications and Allergies Home Medications ?Medication ?Instructions ?Recorded ?Confirmed ?Type levothyroxine 100 mcg tablet 100 mcg PO DAILY 11/29/20 04/19/25 History (Synthroid) fluoxetine 10 mg capsule 10 mg PO DAILY 04/05/25 04/19/25 History Allergies Allergy/AdvReac Type Severity Reaction Status Date / Time gadobenic acid (From Allergy Severe Anaphylaxis Verified 04/19/25 12:50 contrast - MRI) iohexol (From contrast - CT, Allergy Severe Anaphylaxis Verified 04/19/25 12:50 X-RAY) Vital Signs Vital Signs - 24 hr 04/19/25 12:51 Temperature 97 F L Pulse Rate 93 Respiratory Rate 18 Blood Pressure 130/87 Pulse Oximetry 100 Oxygen Delivery Room Air Exam Const: General: comfortable and no acute distress HENMT: Face/Nose/Sinus: Normal nares present Eyes: General: appearance normal, both eyes and all related structures Neck: Neck: no JVD Resp: Auscultation: clear to auscultation bilaterally Cardio: Rate: regular rate Rhythm: regular rhythm GI: Inspection: non-distended GI Palp: Yes Soft to palpation Skin: General skin exam: normal color Extrem: General: normal to inspection Psych: Mental Status: mental status grossly normal Assessment and Plan Assessment and plan (1) History of diverticulitis of colon: Code(s): Z87.19 - Personal history of other diseases of the digestive system Status: Acute Assessment and Plan: colonoscopy
[2025-04-19 13:51] VITALS: BP 108/70; PULSE 82; RESP 19; O2SAT 100
[2025-04-19 14:01] VITALS: BP 109/69; PULSE 73; RESP 18; O2SAT 100
[2025-04-19 14:11] VITALS: BP 109/70; PULSE 77; RESP 17; O2SAT 100
== END 2025-04-19 14:16 | disposition home or self-care (01) ==
PROVIDERS: Anesthesiology; Referring Provider Nurse Practitioner Family; Visit Provider Internal Medicine Gastroenterology
PROC: 0DJD8ZZ Inspection of Lower Intestinal Tract, Via Natural or Artificial Opening Endoscopic (ICD-10-PCS; CPT 45378; principal; 2025-04-19 14:00)
DX: K57.30 Diverticulosis of large intestine without perforation or abscess without bleeding (principal); Z87.19 Personal history of other diseases of the digestive system; E66.9 Obesity, unspecified; Z68.32 Body mass index [BMI] 32.0-32.9, adult
CPT/HCPCS: 45378; J2003; J2704; J7120